=== PATIENT | male | born 1940 | race Caucasian/White ===

== ENCOUNTER 2020-07-20 11:39 | Inpatient (IN) | payer MEDICARE, OTHER ==
[~2020-07-20] VITALS: Ht 175.3 cm; Wt 84.8 kg
[2020-07-20 11:40] VITALS: BP 142/72
[2020-07-20] MEDS ORDERED: OMEPRAZOLE 20 M20 M1 PO (11:48)
[2020-07-20] MEDS ORDERED: NORVASC5 M1 PO (11:48)
[2020-07-20] MEDS ORDERED: ONE DAILY COMP1 EAC1 PO (11:49)
[2020-07-20] MEDS ORDERED: WELLBUTRIN SR200 MG PO (11:49)
[2020-07-20] MEDS ORDERED: RIVASTIGMINE1.5 MG PO (11:50)
[2020-07-20] MEDS ORDERED: ST. JOSEPH ASPI81 MG PO (11:50)
[2020-07-20] MEDS ORDERED: ZOCOR 20 MG TAB20 M1 PO (11:51)
[2020-07-20] MEDS ORDERED: COZAAR 25 MG TA25 M2 PO (11:51)
[2020-07-20] MEDS ORDERED: RESTORIL7.5 M1 PO (11:56)
[2020-07-20 12:16] LABS: HEMATOCRIT 36.4 % (42.0-52.0); HEMOGLOBIN 12.3 gm/dL (14.0-18.0); MCH 31.5 pg (26.0-34.0); MCHC 33.8 g/dL (28.0-37.0); MPV 6.8 fl. (7.2-11.1); NUCLEATED RBCS 0 /100WBC; PLATELET COUNT* 249 thou/uL (150-400); RBC 3.91 mil/uL (4.50-6.00); RDW-CV 13.7 % (10.5-14.5); WBC 15.5 thou/uL (4.0-11.0)
[2020-07-20 12:24] LABS: APTT 22.2 Seconds (25.0-31.3); PROTIME 10.5 Seconds (9.20-11.50)
[2020-07-20 12:26] LABS: CALCIUM 8.9 mg/dL (8.5-10.1); CREATININE 1.4 mg/dL (0.6-1.3)
[2020-07-20 12:36] LABS: ALBUMIN 3.6 g/dL (3.4-5.0); TOTAL BILIRUBIN 0.4 mg/dL (<0.1-1.0); TOTAL PROTEIN 7.1 g/dL (6.4-8.2)
[2020-07-20 12:45] LABS: ABSOLUTE BASOPHILS 0.2 thou/uL (0.0-0.2); ABSOLUTE LYMPHOCYTES 0.9 thou/uL (0.8-5.3); ABSOLUTE MONOCYTES 0.9 thou/uL (0.0-1.2); ABSOLUTE NEUTROPHILS 13.5 thou/uL (1.6-8.1); METAMYELOCYTES 1 %; PLATELET ESTIMATE ADEQUATE
[2020-07-20 16:13] VITALS: BP 101/53
--- NOTE | 2020-07-20 16:27 | EKG ---
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: YOSHI : 1940 Requested By: Greg Patel Order Number: [id number] MD: Kelvin Pathak Measurements Intervals Norris Rate: 84 P: 36 WY: 176 QRS: -26 QRSD: 164 T: 11 QT: 387 QTc: 458 Interpretive Statements Sinus rhythm Right bundle branch block Baseline wander in lead(s) V4 No previous ECG available for comparison Electronically Signed On 07-20-2020 16:27:42 EMERGENCY MEDICINE PHYSICIAN ASSISTANT by Kelvin Pathak [email or web address] <ELECTRONICALLY SIGNED> By: Kelvin Pathak MD, FACC 07/20/20 1627 1204 1204 Kelvin Pathak MD, FAC /EPI
[2020-07-20 17:14] VITALS: BP 119/62
--- NOTE | 2020-07-20 19:33 | NUR ---
REPORT RECIEVED FROM ER. ADMISSION DOCUMENTED. IV PATENT. FAMILY NOTIFED ABOUT PLAN OF CARE. CONSULT CALLED. ISOLATION MAINTAINED.
[2020-07-20 20:00] VITALS: BP 110/52
--- NOTE | 2020-07-20 20:00 | NUR ---
RECEIVED REPORT AND ASSUMED CARE OF PT, ASSESSMENT COMPLETED. PT PLEASANT AND COOPERATIVE. ABLE TO ANSWER ORIENTATION QUESTIONS BUT NOT ALWAYS ABLE TO ANSWER APPROPRIATELY TO OTHER QUESTIONS. GAIT STEADY TO BR AND BACK. BED ALARM ON. TELEMETRY ON SHOWING SR WITH BBB. PT IN ISOLATION FOR PENDING COVID. WILL CONT TO MONITOR AND ASSIST NEEDED.
[2020-07-20 21:14] LABS: URINE BILIRUBIN NEGATIVE (Negative); URINE BLOOD NEGATIVE (Negative); URINE CLARITY CLEAR; URINE COLOR YELLOW; URINE GLUCOSE-RANDOM NEGATIVE (Negative); URINE KETONES NEGATIVE (Negative); URINE LEUKOCYTES-REFLEX NEGATIVE (Negative); URINE NITRITE-REFLEX NEGATIVE (Negative); URINE PROTEIN NEGATIVE (Negative); URINE UROBILINOGEN 0.2 E.U./dl (0.2-1.0)
[2020-07-20 23:44] VITALS: BP 102/56
[2020-07-21] MEDS ORDERED: NORVASC 2.5 MG2.5 M1 PO (01:26)
[2020-07-21] MEDS ORDERED: OMEPRAZOLE 20 M20 M1 PO (01:27)
[2020-07-21] MEDS ORDERED: WELLBUTRIN 100100 MG PO ×2 (01:29→02:01)
[2020-07-21] MEDS ORDERED: SUPER THERAVIT1 EACH PO (01:30)
[2020-07-21] MEDS ORDERED: RIVASTIGMINE PO (01:35)
[2020-07-21] MEDS ORDERED: ASPIRIN EC81 M1 PO (01:41)
[2020-07-21] MEDS ORDERED: SIMVASTATIN PO (01:42)
[2020-07-21] MEDS ORDERED: COZAAR 50 MG TA50 MG PO (01:47)
[2020-07-21] MEDS ORDERED: RESTORIL7.5 M1 PO (01:48)
[2020-07-21 04:16] VITALS: BP 128/81
[2020-07-21 05:26] LABS: ALBUMIN 3.2 g/dL (3.4-5.0); ALKALINE PHOSPHATASE 53 U/L (46-116); ANION GAP 7 mmol/L (7-16); BUN 30 mg/dL (7-18); CHLORIDE 105 mmol/L (98-107); CHOLESTEROL 160 mg/dL (<200); CO2 27 mmol/L (21-32); CREATININE 1.8 mg/dL (0.6-1.3); GLUCOSE 87 mg/dL (70-99); HDL CHOLESTEROL 57 mg/dL (>40); LDL CHOLESTEROL 95 mg/dL (<100); POTASSIUM 4.4 mmol/L (3.5-5.1); SGOT 24 U/L (15-37); SGPT 31 U/L (30-65); SODIUM 139 mmol/L (136-145); TC:HDL 2.8 Ratio (Not establshd); TOTAL BILIRUBIN 0.4 mg/dL (<0.1-1.0); TOTAL PROTEIN 6.6 g/dL (6.4-8.2); TRIGLYCERIDE 44 mg/dL (<150); VLDL 9 mg/dL (<40)
[2020-07-21 05:30] LABS: SERUM ASSESSMENT CLEAR
--- NOTE | 2020-07-21 05:47 | NUR ---
SLEPT WELL TONIGHT. ASSISTED TO AND FROM BR WITH STEADY GAIT. NO TREMORS NOTED. PT STATES HE FEELS LIKE HE IS BACK TO NORMAL. TELEMETRY SHOWING SR WITH BBB. HS GOALS OF REST, SAFETY AND OXYGENATION ACHIEVED.
[2020-07-21 10:35] LABS: CALCIUM 9.5 mg/dL (8.5-10.1); CREATININE 1.6 mg/dL (0.6-1.3); POTASSIUM 4.1 mmol/L (3.5-5.1)
[2020-07-21 10:38] LABS: MAGNESIUM 2.2 mg/dL (1.8-2.4); PHOSPHORUS* 2.3 mg/dL (2.5-4.9)
[2020-07-21 12:27] VITALS: BP 128/68
[2020-07-21 18:32] VITALS: BP 139/70
[2020-07-21 20:39] VITALS: BP 141/77
--- NOTE | 2020-07-21 20:40 | NUR ---
RECEIVED REPORT FROM PREVIOUS SHIFT. PT PLEASANT AND COOPERATIVE. REPORT GIVEN TO ERROL FITCH, PT TRANSFERRED TO ROOM 223 PER W/C WITH BELONGINGS.
--- NOTE | 2020-07-21 21:01 | NUR ---
Pt remained A&O x4 for entire shift. Pt denies any pain. Pt states he feels pretty good. Pt walked with steady gait to bathroom with GRADUATE ADVISOR in room. Vital signs stable. Pt uses call light appropriately and is pleasant with staff. Call light within reach.
--- NOTE | 2020-07-21 21:20 | NUR ---
Pt's called today. updated on pt's status. Pt given the phone in the room and shown how to call his and speak with her.
[2020-07-22] VITALS: BP 145/74
[2020-07-22 02:06] LABS: GLYCOHEMOGLOBIN (HGB A1C) 5.2 % (4.8-5.6)
[2020-07-22 04:00] VITALS: BP 132/70
--- NOTE | 2020-07-22 08:06 | NUR ---
PT IS ABLE TO COMMUNICATE HIS NEEDS TO STAFF WITH VERY MINOR DIFFICULTY; HE CAN BE CONFUSED AT TIMES. 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 POSSIBLE DISCHARGE SOON.
--- NOTE | 2020-07-22 10:27 | NUR ---
CM SPOKE TO THE PT TO DISCUSS CM ASSESSMENT. PT A&O, INDEPENDENT WITH ADL'S, AND DRIVES. PT RESIDES AT HOME WITH SPOUSE. PT USES CANE FOR MOBILITY, BUT ALSO OWNS A WALKER. PT HAS 0 HX OF HH OR SNF. CM WILL REMAIN AVAILABLE TO ASSIST AND FOLLOW NEEDED.
[2020-07-22 11:32] VITALS: BP 159/80
[2020-07-22 15:01] VITALS: BP 159/80
--- NOTE | 2020-07-22 15:21 | NUR ---
DISCONTINU IV AD TELE. PT AND SPOUSE UNDERSTAND ALL FOLLOW UP ORDERS.
== END 2020-07-22 16:00 | disposition home or self-care (01) | DRG 193 ==
LOC: M.ERS 11:39 → M.2W 13:44 → M.TBA-ER 13:44 → M.ORTHSURG 16:55 → M.2W 07-21 20:35
PROVIDERS: Emergency Medicine Emergency Medical Services; ADMIT Internal Medicine; ATTEND Internal Medicine
DX: J12.9 Viral pneumonia, unspecified (principal); J96.01 Acute respiratory failure with hypoxia; R65.11 Systemic inflammatory response syndrome (SIRS) of non-infectious origin with acute organ dysfunction; N17.9 Acute kidney failure, unspecified; E86.0 Dehydration; G30.9 Alzheimer's disease, unspecified; F02.80 Dementia in other diseases classified elsewhere, unspecified severity, without behavioral disturbance, psychotic disturbance, mood disturbance, and anxiety; E78.5 Hyperlipidemia, unspecified; N40.0 Benign prostatic hyperplasia without lower urinary tract symptoms; K21.9 Gastro-esophageal reflux disease without esophagitis; F32.9 Major depressive disorder, single episode, unspecified; Z20.822 Contact with and (suspected) exposure to COVID-19; Z90.49 Acquired absence of other specified parts of digestive tract; Z99.81 Dependence on supplemental oxygen; I69.898 Other sequelae of other cerebrovascular disease; Z79.82 Long term (current) use of aspirin; Z79.899 Other long term (current) drug therapy; Z88.1 Allergy status to other antibiotic agents; Z88.8 Allergy status to other drugs, medicaments and biological substances; Z87.891 Personal history of nicotine dependence

== ENCOUNTER → 2020-09-20 | Outpatient (CLI) | payer MEDICARE, OTHER ==
[~2020-09-20] MED LIST: ASPIRIN EC81 M1 PO; COZAAR 25 MG TA25 M2 PO; COZAAR 50 MG TA50 MG PO; NORVASC 2.5 MG2.5 M1 PO; NORVASC5 M1 PO; OMEPRAZOLE 20 M20 M1 PO; ONE DAILY COMP1 EAC1 PO; RESTORIL7.5 M1 PO; RIVASTIGMINE PO; RIVASTIGMINE1.5 MG PO; SIMVASTATIN PO; ST. JOSEPH ASPI81 MG PO; SUPER THERAVIT1 EACH PO; WELLBUTRIN 100100 MG PO; WELLBUTRIN SR200 MG PO; ZOCOR 20 MG TAB20 M1 PO
[2020-09-21 20:33] LABS: ANA INTERPRETATION Negative (Negative)
== END ==
LOC: M.LAB 13:07 → M.MRI 13:07
PROVIDERS: ATTEND Psychiatry & Neurology Neuromuscular Medicine
DX: G30.9 Alzheimer's disease, unspecified (principal); R42 Dizziness and giddiness; R55 Syncope and collapse; F02.80 Dementia in other diseases classified elsewhere, unspecified severity, without behavioral disturbance, psychotic disturbance, mood disturbance, and anxiety; Z87.01 Personal history of pneumonia (recurrent)